=== PATIENT | male | born 1995 | race Caucasian/White ===

== ENCOUNTER 2016-07-06 17:39 | Emergency (ER) | payer BC ==
[2016-07-06 18:34] VITALS: BP 119/64
--- NOTE | 2016-07-06 20:24 | UC ---
Allergic Reaction HPI - HPI Summary HPI Summary: 21 year old male with complaints of hives over back and lower extremities on and off x 1 month. over the last 2 weeks his upper lip occasionally swells. For the last 2 days it seems to be getting worse. He can not identify any new detergents, softeners, soaps, foods or medications. He denies his tongue or throat swelling Denies chest pain or difficulty breathing - History of Current Complaint Chief Complaint: UCSkin Stated Complaint: SWOLLEN LIP COMPLAINT Time Seen by Provider: 07/06/16 20:08 Hx Obtained From: Patient Onset/Duration: Sudden Onset, Lasting Weeks - 4, Still Present Severity Initially: Mild Severity Currently: Mild Location: Diffuse Character: Swelling, Pruritus, Hives Aggrevating Factor(s): Nothing Alleviating Factor(s): Nothing - has not tried anything Associated Signs And Symptoms: Positive: Rash - hives over back. Negative: Abdominal Pain, Chest Pain, Cough Wheezing, Diaphoresis, Difficulty Breathing, Hoarseness, Lightheadedness, Nausea, Syncope, Throat Tightening, Vomiting - Related Hx Possible Reaction To: Unknown - Allergies/Home Medications Allergies/Adverse Reactions: Allergies Allergy/AdvReac Type Severity Reaction Status Date / Time No Known Allergies Allergy Verified 07/06/16 18:34 PMH/Surg Hx/FS Hx/Imm Hx Previously Healthy: Yes Endocrine History Of: Denies: Diabetes Cardiovascular History Of: Denies: Cardiac Disorders Respiratory History Of: Denies: Asthma - Surgical History Surgical History: Yes Surgery Procedure, Year, and Place: hernia repair. lacerated finger and repaired - Family History Known Family History: Negative: Hypertension, Diabetes - Social History Occupation: Employed Full-time - [employer] Alcohol Use: None Substance Use Type: None Smoking Status (MU): Never Smoked Tobacco - Immunization History Most Recent Tetanus Shot: [id number] Vaccination Up to Date: Yes Review of Systems Constitutional: Negative Skin: Rash - hives Eyes: Negative ENT: Other - upper lip swelling Respiratory: Negative Cardiovascular: Negative Gastrointestinal: Negative Genitourinary: Negative Motor: Negative Neurovascular: Negative Musculoskeletal: Negative Neurological: Negative Psychological: Negative All Other Systems Reviewed And Are Negative: Yes Physical Exam Triage Information Reviewed: Yes Appearance: No Pain Distress, Well-Nourished, Ill-Appearing Vital Signs: Initial Vital Signs Temp 99.2 F 07/06/16 18:30 Pulse 70 07/06/16 18:30 Resp 18 07/06/16 18:30 BP 119/64 07/06/16 18:30 Pulse Ox 100 07/06/16 18:30 Vital Signs Reviewed: Yes Eyes: Positive: Conjunctiva Clear. Negative: Discharge ENT: Positive: Hearing grossly normal, Pharynx normal, TMs normal, Other: - No obvious enlargement of the upper or lower lip at this time. Negative: Nasal congestion, Nasal drainage, Tonsillar swelling, Tonsillar exudate Neck: Positive: Supple, Nontender, No Lymphadenopathy Respiratory: Positive: Lungs clear, Normal breath sounds. Negative: Crackles, Stridor, Wheezing Cardiovascular: Positive: RRR, No Murmur Musculoskeletal: Positive: Strength Intact, ROM Intact Neurological: Positive: Alert, Muscle Tone Normal Psychological: Positive: Age Appropriate Behavior - pleasant and cooperative Skin: Positive: Other - significant acne over back No hives noted. Negative: rashes Allergic Reaction Course/Dx - Differential Dx/Diagnosis Differential Diagnosis/HQI/PQRI: Local Allergic Reaction, Urticaria Provider Diagnoses: Allergic reaction Discharge - Discharge Plan Condition: Stable Disposition: HOME Prescriptions: predniSONE TAB* [Deltasone TAB*] 40 mg PO DAILY #10 tab Patient Education Materials: Urticaria (ED), Prednisone (By mouth)
== END 2016-07-06 20:31 | disposition home or self-care (01) ==
LOC: UCCORT 17:39
DX: T78.40XA Allergy, unspecified, initial encounter (principal); X58.XXXA Exposure to other specified factors, initial encounter
CPT/HCPCS: 99202; G0463